=== PATIENT | male | born 1950 | race Caucasian/White ===

== ENCOUNTER → 2017-12-07 | Outpatient (CLI) | payer MEDICARE, OTHER | LOC: M WUC 14:12 | DX: R06.09 Other forms of dyspnea (principal) | CPT/HCPCS: 71046 ==

== ENCOUNTER → 2017-12-19 | Outpatient (CLI) | payer MEDICARE, OTHER ==
[~2017-12-19] MED LIST: ISOVUE-370 76% 100ML VIAL (Q9967) As Ordered
== END ==
LOC: M RAD 13:37
DX: R06.00 Dyspnea, unspecified (principal)
CPT/HCPCS: Q9967

== ENCOUNTER → 2018-04-17 | Outpatient (CLI) | payer MEDICARE, OTHER | LOC: M RAD 15:15 | DX: R06.00 Dyspnea, unspecified (principal) | CPT/HCPCS: Q9967 ==

== ENCOUNTER → 2018-04-26 | Outpatient (CLI) | payer MEDICARE, OTHER ==
[2018-04-26 17:43] LABS: BASO % 0.5 % (0.0-1.0); EOS # 0.2 10^3/uL (0.0-0.50); EOS % 2.3 % (0.0-3.0); HEMATOCRIT 38.3 % (42.0-52.0); HEMOGLOBIN 12.7 g/dl (13.5-17.5); IMMATURE GRANULOCYTE % 0.7 % (0-3.0); LYMPH # 1.4 10^3/uL (1.5-4.5); LYMPH % 15.8 % (24.0-44.0); MEAN CORPUSCULAR HEMOGLOBIN 29.5 pg (27.0-33.0); MEAN CORPUSCULAR HGB CONC 33.2 g/dl (32.0-36.5); MEAN CORPUSCULAR VOLUME 88.9 fl (80.0-96.0); MONO # 0.8 10^3/uL (0.0-0.8); MONO % 8.7 % (0.0-5.0); NEUTROPHILS # 6.2 10^3/uL (1.8-7.7); PLATELET COUNT, AUTOMATED 212 10^3/uL (150-450); RED BLOOD COUNT 4.31 10^6/uL (4.30-6.10); RED CELL DISTRIBUTION WIDTH 12.7 % (11.5-14.5); WHITE BLOOD COUNT 8.6 10^3/uL (4.0-10.0)
[2018-04-26 17:45] LABS: ALBUMIN 3.7 GM/DL (3.2-5.2); ALBUMIN/GLOBULIN RATIO 1.19 (1.00-1.93); ALKALINE PHOSPHATASE 145 U/L (45-117); ALT/SGPT 19 U/L (12-78); ANION GAP 7 MEQ/L (8-16); AST/SGOT 15 U/L (7-37); BILIRUBIN,TOTAL 0.5 MG/DL (0.2-1.0); BLOOD UREA NITROGEN 17 MG/DL (7-18); C REACTIVE PROTEIN QUANTITATIV < 0.30 MG/DL (0.00-0.30); CALCIUM LEVEL 8.5 MG/DL (8.8-10.2); CARBON DIOXIDE LEVEL 23 MEQ/L (21-32); CHLORIDE LEVEL 112 MEQ/L (98-107); CREATININE FOR GFR 1.68 MG/DL (0.70-1.30); GLOMERULAR FILTRATION RATE 43.7 (>49); GLUCOSE, FASTING 112 MG/DL (70-100); POTASSIUM SERUM 4.6 MEQ/L (3.5-5.1); SODIUM LEVEL 142 MEQ/L (136-145); TOTAL PROTEIN 6.8 GM/DL (6.4-8.2)
[2018-04-26 21:25] LABS: CONTROL LINE MONO INT CTR LINE PRESENT; MONO SCRN NEGATIVE (NEGATIVE)
[2018-04-29 00:12] LABS: Lyme Disease IgG/IgM Antibodie <0.91 ISR (0.00-0.90); Lyme Disease IgM Ab Quantitati <0.80 index (0.00-0.79)
== END ==
LOC: M WUC 11:31
DX: R53.83 Other fatigue (principal)
CPT/HCPCS: 80053

== ENCOUNTER → 2019-07-19 | Outpatient (REF) | payer MEDICARE, OTHER ==
[~2019-07-19] MED LIST changes: +AMIL25TA PO; +ATEN50TA2 PO; -ISOVUE-370 76% 100ML VIAL (Q9967) As Ordered; +METO10TA2 PO; +MORP15TA2 PO; +PANT40TA3 PO; +PRAV40TA2 PO; +RANO500T PO
[2019-07-19 18:49] LABS: FERRITIN 68 NG/ML (26-388); IRON (FE) 97 UG/DL (65-175); TOTAL IRON BINDING CAPACITY 359 UG/DL (250-450)
[2019-07-19 18:53] LABS: FOLATE > 24.0 NG/ML; VITAMIN B12 LEVEL > 2000 PG/ML
== END ==
LOC: M LAB REF 16:56
PROVIDERS: ATTEND Internal Medicine Nephrology
DX: D64.9 Anemia, unspecified (principal)

== ENCOUNTER 2019-07-20 07:39 | Day surgery (SDC) | payer MEDICARE, OTHER ==
[~2019-07-20] VITALS: Ht 170.2 cm; Wt 72.1 kg
[2019-07-20] MEDS ORDERED: NS 1,000 ML IV ONE (09:00)
[2019-07-20] MEDS ORDERED: LIDOCAINE 2% INJ 100 MG/5 ML SDV (FOR ANES.) As Ordered ONE (09:03)
[2019-07-20] MEDS ORDERED: PROPOFOL 200 MG/20 ML VIAL As Ordered ONE (09:04)
--- NOTE | 2019-07-20 10:31 | ROOR ---
Patient Name: Martínez Pardo Procedure Date: 07/20/2019 10:02 AM Date of : 1950 Age: 69 Room: [facility] Gender: Male Note Status: Finalized Procedure: Colonoscopy Indications: Screening in patient at increased risk: Family history of 1st-degree relative with colorectal cancer Providers: Calvin COCHRAN MD Referring MD: JUAN MANUEL LEYVA MD Requesting Provider: Medicines: Monitored Anesthesia Care Complications: No immediate complications. Procedure: Pre-Anesthesia Assessment: - The heart rate, respiratory rate, oxygen saturations, blood pressure, adequacy of pulmonary ventilation, and response to care were monitored throughout the procedure. The Colonoscope was introduced through the anus and advanced to the cecum, identified by appendiceal orifice and ileocecal valve. The colonoscopy was performed without difficulty. The patient tolerated the procedure well. The quality of the bowel preparation was good. Findings: The perianal and digital rectal examinations were normal. Mild sigmoid diverticulosis and small internal hemorrhoids. The entire examined colon appeared normal on direct and retroflexion views. Impression: - Mild sigmoid diverticulosis and small internal hemorrhoids. - The entire examined colon is normal on direct and retroflexion views. - No specimens collected. Recommendation: - Repeat colonoscopy in 5 years for screening purposes. Calvin Cochran MD Calvin COCHRAN MD 07/20/2019 10:31:10 AM Electronically signed by Calvin COCHRAN MD Number of Addenda: 0 Note Initiated On: 07/20/2019 10:02 AM Estimated Blood Loss: Estimated blood loss: none.
[2019-07-20 10:55] VITALS: BP 141/65
== END 2019-07-20 11:02 | disposition home or self-care (01) ==
LOC: M OPP 07:39
PROVIDERS: ATTEND Internal Medicine Gastroenterology
DX: Z12.11 Encounter for screening for malignant neoplasm of colon (principal); Z80.0 Family history of malignant neoplasm of digestive organs; K57.30 Diverticulosis of large intestine without perforation or abscess without bleeding; K64.8 Other hemorrhoids; Z79.891 Long term (current) use of opiate analgesic; Z79.899 Other long term (current) drug therapy; Z88.5 Allergy status to narcotic agent; Z88.8 Allergy status to other drugs, medicaments and biological substances

== ENCOUNTER → 2019-07-26 | Outpatient (CLI) | payer MEDICARE, OTHER ==
--- NOTE | 2019-07-26 16:12 | REP ---
Renal ultrasound for chronic stage III renal disease and hypertension: The right kidney measures 10.1 x 4.3 x 4.3 cm. The left kidney measures 8.9 x 3.6 x 4.9 cm. The right kidney is in the low normal size range. The left kidney is in the atrophic size range. Renal cortical echogenicity is normal bilaterally. There is no hydronephrosis. There are no renal calculi. There are no solid or cystic renal masses. With color Doppler imaging. No ureteral jets could be identified into the bladder. However, there is no hydronephrosis. This may be from dehydration. Impression: The atrophic size left kidney. Low normal size right kidney. Otherwise, negative renal ultrasound. No ureteral jets could be identified into the bladder with color Doppler imaging, possibly because of dehydration. There is no hydronephrosis. Electronically Signed by Justin Taylor MD 07/26/2019 04:03 P
== END ==
LOC: M RAD 14:08
PROVIDERS: ATTEND Internal Medicine Nephrology
DX: N18.3 Chronic kidney disease, stage 3 (moderate) (principal)

== ENCOUNTER → 2020-12-01 | Outpatient (CLI) | payer MEDICARE, OTHER ==
[~2020-12-01] MED LIST changes: +PANT40TA29 PO; -PANT40TA3 PO; -RANO500T PO; +RANO500T2 PO
--- NOTE | 2020-12-01 07:49 | REP ---
INDICATION: CKD STAGE 3 B, RIGHT UPPER QUAD PAIN TECHNIQUE: Real time B-mode arellano scale ultrasound examination using curved array transducer. FINDINGS: Liver, spleen, and visualized pancreas are normal in contour, size, echogenicity, and overall appearance. No focal hepatic, splenic or obvious pancreatic lesions are identified. Patient is noted to be status post cholecystectomy with compensatory biliary ductal dilatation. The common bile duct measures 7.8 mm diameter. The bilateral kidneys are normal in rate form shape without hydronephrosis or obvious abnormality. Right kidney measures 9.0 x 5.0 x 4.4 cm. Left kidney measures 8.7 x 5.1 x 4.7 cm. Visualized portions of the abdominal aorta appear grossly normal. No obvious ascites. IMPRESSION: No obvious acute pathology by ultrasound evaluation. <Electronically signed by Regan Ponce > 12/01/20 [id number]
== END ==
LOC: M RAD 06:51
PROVIDERS: ATTEND Internal Medicine Nephrology
DX: N18.32 Chronic kidney disease, stage 3b (principal); I12.9 Hypertensive chronic kidney disease with stage 1 through stage 4 chronic kidney disease, or unspecified chronic kidney disease; R10.11 Right upper quadrant pain

== ENCOUNTER → 2021-02-25 | Outpatient (CLI) | payer MEDICARE, OTHER | LOC: M LAB 10:28 | PROVIDERS: ATTEND Ophthalmology | DX: Z79.899 Other long term (current) drug therapy (principal) ==

== ENCOUNTER 2021-07-11 12:59 | Emergency (ER) | payer MEDICARE, OTHER ==
[~2021-07-11] VITALS: Ht 170.2 cm; Wt 75.0 kg
[2021-07-11] MEDS ORDERED: VALA1TAB5 (13:08)
--- NOTE | 2021-07-11 13:47 | REP ---
INDICATION: trauma. COMPARISON: None. TECHNIQUE: Three views of the left shoulder were obtained. FINDINGS: There is deformity of the proximal humerus consistent with a fracture of the surgical neck of the humerus. There could be a pre-existing healed component. The humeral head is located. There is moderate arthritis of the acromioclavicular joint and mild arthritis of the glenohumeral joint. IMPRESSION: 1. Possible acute on healed fracture of the surgical neck of the left humerus. 2. Other findings as noted. Incidental Findings: Fracture of the surgical neck of the left humerus. There may be a chronic component. The critical information above was relayed directly by me by telephone to AMPARO DIAZ on 07/11/2021 at 1:42 pm with readback verification. <Electronically signed by Betito Garrett > 07/11/21 [id number]
--- NOTE | 2021-07-11 14:58 | REP ---
INDICATION: TRAUMA. COMPARISON: None. TECHNIQUE: Contiguous 5 mm thick axial projection images were obtained of the head. 2D coronal reconstructions were performed. FINDINGS: There is mild diffuse cerebral atrophy with concomitant ventriculomegaly. There is no evidence of acute intracranial hemorrhage or infarction. There are no abnormal intracranial masses or mass effects. There is partial sclerosis of the mastoid air cells on the right. The skull base and calvarium are otherwise unremarkable. The extracranial soft tissues are unremarkable. IMPRESSION: 1. Cerebral atrophy. 2. No evidence of acute intracranial pathology. 3. Other findings as noted. <Electronically signed by Betito Garrett > 07/11/21 [id number]
[2021-07-11] MEDS ORDERED: MORPHINE 4 MG/ML 1ML VIAL/SYRINGE (J2270) IM ONE (15:30)
--- NOTE | 2021-07-11 16:10 | REPVR ---
PROCEDURE INFORMATION: Exam: CT Left Upper Extremity Without Contrast Exam date and time: 07/11/2021 3:03 PM Age: 71 years old Clinical indication: Injury or trauma; Fall; Blunt trauma (contusions or hematomas); Arm, upper; Left; Additional info: Per orthopedics TECHNIQUE: Imaging protocol: CT of the Left upper extremity without intravenous contrast was performed. Radiation optimization: All CT scans at this facility use at least one of these dose optimization techniques: automated exposure control; mA and/or kV adjustment per patient size (includes targeted exams where dose is matched to clinical indication); or iterative reconstruction. COMPARISON: No relevant prior studies available. FINDINGS: Tubes, catheters and devices: Non-obstructing left renal calculi. Bones/joints: Mild left acromioclavicular joint DJD. Minimal left glenohumeral joint DJD. Acute mildly comminuted fracture of the left humeral neck and the left humeral head. Up to 2.9 cm of dorsal impaction. Volar apex angulation. Up to 1.3 cm of displacement. The humeral head fracture involves the greater tuberosity. No involvement of the humeral head articular surface. No dislocation. Small glenohumeral joint hemarthrosis. Soft tissues: Subcutaneous contusion at the ventral aspect of the proximal left upper extremity. IMPRESSION: Acute mildly comminuted fracture of the left humeral head and neck. Electronically signed by: Adela Anaya On 07/11/2021 16:09:49 PM
[2021-07-11 16:49] VITALS: BP 112/59
== END 2021-07-11 17:50 | disposition home or self-care (01) ==
LOC: M ED 12:59
DX: S42.202A Unspecified fracture of upper end of left humerus, initial encounter for closed fracture (principal); S00.93XA Contusion of unspecified part of head, initial encounter; G31.9 Degenerative disease of nervous system, unspecified; W19.XXXA Unspecified fall, initial encounter; Y92.099 Unspecified place in other non-institutional residence as the place of occurrence of the external cause; Y93.9 Activity, unspecified; Y99.9 Unspecified external cause status; I10 Essential (primary) hypertension; K44.9 Diaphragmatic hernia without obstruction or gangrene; N18.30 Chronic kidney disease, stage 3 unspecified; Z86.010 Personal history of colon polyps; Z79.899 Other long term (current) drug therapy; Z88.8 Allergy status to other drugs, medicaments and biological substances; Z88.5 Allergy status to narcotic agent
CPT/HCPCS: 70450; 73030; 73200; 96372; 99284; J2270

== ENCOUNTER → 2021-07-17 | Outpatient (CLI) | payer MEDICARE, OTHER ==
[~2021-07-17] MED LIST changes: +VALA1TAB5
--- NOTE | 2021-07-17 14:28 | REP ---
INDICATION: LT HUMERAL FX. COMPARISON: 07/11/2021 TECHNIQUE: Four views FINDINGS: The previously described comminuted proximal humeral fracture has an unchanged appearance. There are no additional fractures. IMPRESSION: No significant change <Electronically signed by Mikhail Miranda > 07/17/21 [id number]
== END ==
LOC: M SOG 13:52
PROVIDERS: ATTEND Orthopaedic Surgery
DX: S42.232A 3-part fracture of surgical neck of left humerus, initial encounter for closed fracture (principal); X58.XXXA Exposure to other specified factors, initial encounter; Y92.9 Unspecified place or not applicable; Y93.9 Activity, unspecified; Y99.9 Unspecified external cause status

== ENCOUNTER → 2021-08-03 | Outpatient (CLI) | payer MEDICARE, OTHER ==
--- NOTE | 2021-08-03 11:20 | REP ---
INDICATION: LT HUMERAL FX. COMPARISON: 07/17/2021 TECHNIQUE: Two views FINDINGS: Callus formation is seen surrounding the proximal humeral fracture consistent with healing. IMPRESSION: Healing proximal humeral fracture <Electronically signed by Mikhail Miranda > 08/03/21 [id number]
== END ==
LOC: M SOG 11:01
PROVIDERS: ATTEND Orthopaedic Surgery
DX: S42.232D 3-part fracture of surgical neck of left humerus, subsequent encounter for fracture with routine healing (principal); X58.XXXD Exposure to other specified factors, subsequent encounter; Y92.9 Unspecified place or not applicable; Y99.9 Unspecified external cause status; Y93.9 Activity, unspecified

== ENCOUNTER → 2021-08-24 | Outpatient (CLI) | payer MEDICARE, OTHER ==
--- NOTE | 2021-08-24 12:39 | REP ---
INDICATION: LT SHOULDER FX. COMPARISON: 08/03/2021. TECHNIQUE: Four views left shoulder. FINDINGS: The comminuted fracture of the proximal left humerus is again noted, with no definite change in alignment. There is increased healing callus formation. Narrowing and spurring is again noted of the acromioclavicular joint. IMPRESSION: Progressive healing of the proximal humeral fracture with no change in alignment. <Electronically signed by Justin Marley > 08/24/21 [id number]
== END ==
LOC: M SOG 11:17
PROVIDERS: ATTEND Orthopaedic Surgery
DX: S42.232D 3-part fracture of surgical neck of left humerus, subsequent encounter for fracture with routine healing (principal); X58.XXXD Exposure to other specified factors, subsequent encounter; Y92.9 Unspecified place or not applicable; Y93.9 Activity, unspecified; Y99.9 Unspecified external cause status

== ENCOUNTER 2021-09-03 13:29 | Outpatient (RCR) | payer MEDICARE, OTHER | END 2021-09-06 | LOC: M PT 13:29 | PROVIDERS: ATTEND Orthopaedic Surgery | DX: S42.232A 3-part fracture of surgical neck of left humerus, initial encounter for closed fracture (principal); X58.XXXA Exposure to other specified factors, initial encounter; Y92.9 Unspecified place or not applicable; Y93.9 Activity, unspecified; Y99.9 Unspecified external cause status ==

== ENCOUNTER → 2021-10-06 | Outpatient (RCR) | payer MEDICARE, OTHER | LOC: M PT 09-08 14:17 | PROVIDERS: ATTEND Orthopaedic Surgery | DX: S42.232D 3-part fracture of surgical neck of left humerus, subsequent encounter for fracture with routine healing (principal); X58.XXXD Exposure to other specified factors, subsequent encounter; Y92.9 Unspecified place or not applicable; Y99.9 Unspecified external cause status; Y93.9 Activity, unspecified ==

== ENCOUNTER → 2021-10-06 | Outpatient (CLI) | payer MEDICARE, OTHER | LOC: M SOG 13:46 | PROVIDERS: ATTEND Orthopaedic Surgery | DX: S42.232D 3-part fracture of surgical neck of left humerus, subsequent encounter for fracture with routine healing (principal); X58.XXXD Exposure to other specified factors, subsequent encounter; Y92.9 Unspecified place or not applicable; Y99.9 Unspecified external cause status; Y93.9 Activity, unspecified ==

== ENCOUNTER 2021-10-28 12:39 | Outpatient (RCR) | payer MEDICARE, OTHER | END 2021-11-06 | LOC: M PT 12:39 | PROVIDERS: ATTEND Orthopaedic Surgery | DX: S42.232D 3-part fracture of surgical neck of left humerus, subsequent encounter for fracture with routine healing (principal); X58.XXXD Exposure to other specified factors, subsequent encounter; Y92.9 Unspecified place or not applicable; Y93.9 Activity, unspecified; Y99.9 Unspecified external cause status ==

== ENCOUNTER → 2022-08-26 | Outpatient (CLI) | payer MEDICARE, OTHER | LOC: M LABSMTC 09:01 | PROVIDERS: ATTEND Ophthalmology | DX: Z01.818 Encounter for other preprocedural examination (principal) ==

== ENCOUNTER → 2022-12-30 | Outpatient (CLI) | payer MEDICARE, OTHER | LOC: M LABSMTC 07:36 | PROVIDERS: ATTEND Anesthesiology | DX: Z01.812 Encounter for preprocedural laboratory examination (principal); Z11.52 Encounter for screening for COVID-19 ==

== ENCOUNTER 2023-01-04 07:31 | Day surgery (SDC) | payer MEDICARE, OTHER ==
[~2023-01-04] VITALS: Ht 170.2 cm; Wt 78.9 kg
[~2023-01-04 07:31] MED LIST changes: +BSS IRR 500ML/OMIDRIA 4ML IRR BAG (OR ONLY) As Ordered ONE; +CEFUROXIME 1MG/0.1ML INTRACAMERAL INJ As Ordered ONE; +CYCLOPENTOLATE 1% OPHTH SOLN 2ML BTL OD SCH; +LIDOCAINE 1% SDV 5ML VIAL As Ordered ONE; +OFLOXACIN 0.3 % (OCUFLOX) OPTH SOL 5ML OD SCH; +PHENYLEPHRINE 2.5% OPHTH SOL 2ML OD SCH; +PROPARACAINE 0.5% OPHTH SOL 15ML OD ONE; +TROPICAMIDE 1% OPHTH SOLN 15ML OD SCH
[2023-01-04] MEDS ORDERED: fentaNYL 100 MCG/2 ML INJECTION As Ordered ONE (10:35)
[2023-01-04] MEDS ORDERED: MIDAZOLAM INJ 2MG/2ML VIAL As Ordered ONE (10:35)
[2023-01-04 10:58] VITALS: BP 129/66
== END 2023-01-04 11:16 | disposition home or self-care (01) ==
LOC: M SDC 07:31
PROVIDERS: ATTEND Ophthalmology
DX: H25.11 Age-related nuclear cataract, right eye (principal); I10 Essential (primary) hypertension; E78.5 Hyperlipidemia, unspecified; K21.9 Gastro-esophageal reflux disease without esophagitis; Z79.899 Other long term (current) drug therapy; Z88.8 Allergy status to other drugs, medicaments and biological substances; Z88.5 Allergy status to narcotic agent
CPT/HCPCS: 66984; J0697; J1097; J2250; J3010; V2632

== ENCOUNTER → 2024-05-21 | Outpatient (CLI) | payer MEDICARE, OTHER ==
[~2024-05-21] MED LIST changes: -BSS IRR 500ML/OMIDRIA 4ML IRR BAG (OR ONLY) As Ordered ONE; -CEFUROXIME 1MG/0.1ML INTRACAMERAL INJ As Ordered ONE; -CYCLOPENTOLATE 1% OPHTH SOLN 2ML BTL OD SCH; -LIDOCAINE 1% SDV 5ML VIAL As Ordered ONE; -OFLOXACIN 0.3 % (OCUFLOX) OPTH SOL 5ML OD SCH; -PHENYLEPHRINE 2.5% OPHTH SOL 2ML OD SCH; -PROPARACAINE 0.5% OPHTH SOL 15ML OD ONE; -TROPICAMIDE 1% OPHTH SOLN 15ML OD SCH
[2024-05-21 18:42] LABS: BASO % 0.4 % (0.0-1.0); EOS # 0.1 10^3/uL (0.0-0.5); EOS % 1.8 % (0.0-3.0); HEMATOCRIT 35.9 % (42.0-52.0); HEMOGLOBIN 11.4 g/dl (13.5-17.5); LYMPH # 1.5 10^3/uL (1.5-5.0); LYMPH % 19.6 % (24.0-44.0); MEAN CORPUSCULAR HEMOGLOBIN 29.2 pg (27.0-33.0); MEAN CORPUSCULAR HGB CONC 31.8 g/dl (32.0-36.5); MEAN CORPUSCULAR VOLUME 92.1 fl (80.0-96.0); MONO # 0.7 10^3/uL (0.0-0.8); MONO % 8.4 % (2.0-8.0); NEUTROPHILS # 5.4 10^3/uL (1.5-8.5); NEUTROPHILS % 69.2 % (36.0-66.0); PLATELET COUNT, AUTOMATED 166 10^3/uL (150-450); WHITE BLOOD COUNT 7.8 10^3/uL (4.0-10.0)
[2024-05-21 18:44] LABS: ALBUMIN 3.4 G/DL (3.2-5.2); BILIRUBIN,TOTAL 0.3 MG/DL (0.3-1.2); CALCIUM LEVEL 8.4 MG/DL (8.3-10.6); CHOLESTEROL RISK RATIO 2.88 (<5); CREATININE FOR GFR 1.74 MG/DL (0.70-1.30); GLOMERULAR FILTRATION RATE 41.3 (>42); HDL CHOLESTEROL 47.8 MG/DL (>40); NON-HDL-C 90.2 MG/DL; POTASSIUM SERUM 4.1 MMOL/L (3.5-5.1); TOTAL PROTEIN 5.8 G/DL (5.7-8.2)
== END ==
LOC: M WUC 11:47
PROVIDERS: ATTEND Internal Medicine
DX: E78.5 Hyperlipidemia, unspecified (principal)

== ENCOUNTER → 2025-09-27 | Outpatient (CLI) | payer MEDICARE, OTHER ==
[~2025-09-27] MED LIST changes: -PRAV40TA2 PO; +PRAV40TA85 PO
== END ==
LOC: M LAB 14:26
PROVIDERS: ATTEND Physician Assistant
DX: M19.041 Primary osteoarthritis, right hand (principal); M79.644 Pain in right finger(s); M79.645 Pain in left finger(s)